=== PATIENT | male | born 1990 | race Caucasian/White ===

== ENCOUNTER 2017-06-26 22:24 | Emergency (ER) | payer OTHER ==
[~2017-06-26] VITALS: Ht 170.2 cm; Wt 100.0 kg
[2017-06-26 22:26] VITALS: BP 181/92; PULSE 95; RESP 18; TEMP 98.4; O2SAT 100
[2017-06-26] MEDS ORDERED: NAPR500T2 PO (23:21)
[2017-06-27] MEDS ORDERED: PENICILLIN V POTASSIUM 500 MG TAB PO ONE
[2017-06-27] MEDS ORDERED: TYLETAB34 PO
[2017-06-27] MEDS ORDERED: IBUP-232 PO
[2017-06-27] MEDS ORDERED: PENI500T PO
[2017-06-27] MEDS ORDERED: ACETAMINOPHEN/CODEINE 300 MG/30 MG TAB PO ONE
--- NOTE | 2017-06-27 | PD ---
HPI Chief Complaint: Facial Pain or Swelling Time Seen by Provider: 23:28 Travel History International Travel<30 days: No Contact w/Intl Traveler<30days: No Traveled to known affect area: No History of Present Illness HPI Patient is a 27 year old male who presents to ER with c/o of right sided lower jaw pain which started around 730pm tonight. Reports that he did take some naproxen prior to coming to the ER which has eased his pain. No fever/chills. No trauma to face/neck. PFSH Past Medical History Medical History: Denies Significant Hx Tetanus Vaccination: > 5 Years Influenza Vaccination: No Social History Alcohol Use: Yes (RARELY ) Tobacco Use: No Substance Use: No Allergies-Medications (Allergen,Severity, Reaction): Coded Allergies: citalopram (Verified Allergy, Severe, 06/26/17) SPACE OUT Reported Meds & Prescriptions Reported Meds & Active Scripts Active Reported Naproxen 500 Mg Tab 500 Mg PO ONCE Review of Systems General / Constitutional: No: Fever Eyes: No: Visual changes HENT: Positive: Dental Difficulties, No: Headaches Cardiovascular: No: Chest Pain or Discomfort Respiratory: No: Shortness of Breath Gastrointestinal: No: Abdominal Pain Genitourinary: No: Dysuria Musculoskeletal: No: Pain Skin: No Rash Neurologic: No: Weakness Psychiatric: No: Depression Endocrine: No: Polydipsia Hematologic/Lymphatic: No: Easy Bruising Physical Exam Narrative GENERAL: Well-nourished, well-developed patient. SKIN: Focused skin assessment warm/dry. HEAD: Normocephalic. EYES: No scleral icterus. No injection or drainage. NECK: Supple, trachea midline. No JVD or lymphadenopathy. MOUTH: Patient with no trismus, poor dentition, no obvious abscess/infection, positive right sided cervical adenopathy, no swelling of neck, uvula midline with no swelling CARDIOVASCULAR: Regular rate and rhythm without murmurs, gallops, or rubs. RESPIRATORY: Breath sounds equal bilaterally. No accessory muscle use. GASTROINTESTINAL: Abdomen soft, non-tender, nondistended. MUSCULOSKELETAL: No cyanosis, or edema. BACK: Nontender without obvious deformity. No CVA tenderness. Data Data Last Documented VS Vital Signs Date Time Temp Pulse Resp B/P (MAP) Pulse Ox O2 Delivery O2 Flow Rate FiO2 06/26/17 22:26 98.4 95 18 181/92 (121) 100 Room Air Orders Orders Penicillin V Potassium (Veetids) (06/27/17 00:00) Acetamin-Codeine 300-30 Mg (Tylenol-Code (06/27/17 00:00) MDM Medical Decision Making Medical Screen Exam Complete: Yes Emergency Medical Condition: Yes Medical Record Reviewed: Yes Interpretation(s) Vital Signs Date Time Temp Pulse Resp B/P (MAP) Pulse Ox O2 Delivery O2 Flow Rate FiO2 06/26/17 22:26 98.4 95 18 181/92 (121) 100 Room Air Differential Diagnosis dental infection/caries, tmj Narrative Course 27 year old male who presents to emergency room complaints of right lower jaw pain. Discussed with patient need to follow-up with dentist as he most likely has dental infection/dental caries. Plan to start patient on Pen-Vee K, he was given a list of dental clinics for follow-up. He will return to ER as needed Diagnosis Primary Impression: Pain in lower jaw Additional Impression: Pain, dental Patient Instructions: General Instructions, Narcotic given in the ED Additional Instructions: Please take all antibiotics as prescribed Please follow up with a dentist as soon as possible Return to ER as needed or if symptoms persist Med/Other Pt SpecificInfo: Prescription(s) given Scripts Ibuprofen (Ibuprofen) 600 Mg Tab 600 MG PO Q6H Y for Pain/Inflammation, #40 TAB 0 Refills Prov: Liat Hines DO 06/27/17 Acetaminophen-Codeine (Tylenol-Codeine #3) 300-30 mg Tab 1 TAB PO Q4H Y for PAIN, #12 TAB 0 Refills Prov: Liat Hines DO 06/27/17 Penicillin V Potassium (Penicillin V Potassium) 500 Mg Tab 500 MG PO Q6H for Infection for 10 Days, #40 TAB 0 Refills Prov: Liat Hines DO 06/27/17 Disposition: 01 DISCHARGE HOME Condition: Stable Liat Hines DO Jun 27, 2017 00:00
== END 2017-06-27 00:24 | disposition home or self-care (01) ==
LOC: NEPD 22:24
DX: R68.84 Jaw pain (principal); K08.89 Other specified disorders of teeth and supporting structures
CPT/HCPCS: 99284

== ENCOUNTER 2017-07-26 20:52 | Emergency (ER) | payer OTHER ==
[~2017-07-26] VITALS: Ht 172.7 cm; Wt 100.0 kg
[2017-07-26 20:52] VITALS: BP 142/86; PULSE 107; RESP 16; TEMP 98.5; O2SAT 97
[~2017-07-26 20:52] MED LIST: IBUP-232 PO; NAPR500T2 PO; PENI500T PO; TYLETAB34 PO
--- NOTE | 2017-07-26 21:45 | RADRPT ---
EXAM DATE/TIME: 07/26/2017 21:09 [facility] COMPARISON: No previous studies available for comparison. INDICATIONS : Right anterior knee pain, fell MEDICAL HISTORY : None. SURGICAL HISTORY : None. ENCOUNTER: Initial ACUITY: 1 day PAIN SCORE: 5/10 LOCATION: Right Knee FINDINGS: No acute fracture, dislocation or knee joint effusion. No significant arthritic changes identified. CONCLUSION: No acute fracture, dislocation or knee joint effusion. Tripp Long MD on July 26, 2017 at 21:41 Board Certified Radiologist. This report was verified electronically.
[2017-07-26] MEDS ORDERED: DICL75TA PO (21:48)
--- NOTE | 2017-07-26 21:51 | PD ---
HPI Chief Complaint: Injury Time Seen by Provider: 21:41 Travel History International Travel<30 days: No Contact w/Intl Traveler<30days: No Traveled to known affect area: No History of Present Illness HPI 27-year-old white male presents to emergency Department with complaints of right knee pain after injury at work. Patient states that he works for the [employer]. 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 He states that he struck his right knee very hard on the ground. Since then he has had pain and difficulty ambulate. He denies injury to his head, neck or back. No upper extremity injury. No numbness, tingling or weakness. Pain is moderate. Worse with walking. Some relief with elevation. PFSH Past Medical History Narrative Medical Left ACL tear Tetanus Vaccination: < 5 Years Past Surgical History Narrative Surgical Left ACL reconstruction Social History Alcohol Use: Yes (RARELY ) Tobacco Use: Yes Substance Use: No Allergies-Medications (Allergen,Severity, Reaction): Coded Allergies: citalopram (Verified Allergy, Severe, 06/26/17) SPACE OUT Reported Meds & Prescriptions Reported Meds & Active Scripts Active No Active Prescriptions or Reported Medications Review of Systems Except as stated in HPI: all other systems reviewed are Neg Musculoskeletal: Positive: Arthralgias, Limited ROM, Edema, Pain, No: Myalgias , Weakness Physical Exam Narrative GENERAL: Well-developed, well-nourished in no acute distress. Nontoxic appearing. HEAD: Normocephalic, atraumatic. EYES: Pupils equal round and reactive. Extraocular motions intact. No scleral icterus. No injection or drainage. ENT: TMs clear without erythema. The external auditory canals clear. Nose: clear . Posterior pharynx is pink and moist. No tonsillar edema or exudate. Uvula midline. Airway patent. NECK: Trachea midline.Supple, nontender, moves head freely. No central bony tenderness or spasm. CARDIOVASCULAR: Regular rate and rhythm without murmurs, gallops, or rubs. RESPIRATORY: Clear to auscultation. Breath sounds equal bilaterally. No wheezes , rales, or rhonchi. GASTROINTESTINAL: Abdomen soft, non-tender, nondistended. No hepato-splenomegaly , or palpable masses. No guarding. EXTREMITIES: No clubbing, cyanosis, or edema. Examination of the right lower extremity reveals no obvious joint effusion. He has tenderness over the patella. There is no anterior posterior draw. No medial lateral collateral ligament instability but the patient does complain of pain on medial collateral testing. No pain in the hip, ankle or foot. He has intact sensation with good distal pulses. The left lower extremity as well as upper extremities are unremarkable. BACK: Nontender without deformity or crepitance. No flank tenderness. Data Data Last Documented VS Vital Signs Date Time Temp Pulse Resp B/P (MAP) Pulse Ox O2 Delivery O2 Flow Rate FiO2 07/26/17 20:52 98.5 107 16 142/86 (104) 97 Room Air Orders Orders Knee, Complete (4vws) (07/26/17 ) Ice/Cold Pack (07/26/17 21:46) Splint Or Brace Apply/Monitor (07/26/17 21:46) Crutches (07/26/17 21:46) Naproxen (Naprosyn) (07/26/17 22:00) Ed Discharge Order (07/26/17 21:47) MDM Medical Decision Making Medical Screen Exam Complete: Yes Emergency Medical Condition: Yes Medical Record Reviewed: Yes Interpretation(s) Right knee: Negative for acute fracture. No joint effusion. Differential Diagnosis MDM: High Differential diagnoses: Fracture, sprain, strain, dislocation, contusion, neurovascular injury Narrative Course X-ray of the right knee is negative for trauma. Patient's given Naprosyn 500 mg by mouth, ice pack, Burt wrap and crutches. This is right knee contusion/sprain Diagnosis Primary Impression: right knee contusion/sprain Patient Instructions: General Instructions Departure Forms: Tests/Procedures, Work Release Special Instructions: Sedentary work for 5 days. Additional Instructions: Rest. Elevation. Ice packs for the next 3 days. Burt wrap and crutches. No weight-bearing and then progress to weight-bearing as tolerated. Medications as directed Follow-up with an orthopedist or your work comp doctor in one week. Return to the ER if any problems Med/Other Pt SpecificInfo: Prescription(s) given Scripts Diclofenac Sodium DR (Diclofenac Sodium DR) 75 Mg Tabdr 75 MG PO BID, #20 TAB 0 Refills Prov: Bret Nj MD 07/26/17 Disposition: 01 DISCHARGE HOME Condition: Stable Preet Ibanez PA Jul 26, 2017 21:51
[2017-07-26] MEDS ORDERED: NAPROXEN 500 MG TAB PO ONE (22:00)
== END 2017-07-26 22:27 | disposition home or self-care (01) ==
LOC: NEPK 20:52
DX: S83.91XA Sprain of unspecified site of right knee, initial encounter (principal); X58.XXXA Exposure to other specified factors, initial encounter; Y92.89 Other specified places as the place of occurrence of the external cause; Y99.0 Civilian activity done for income or pay; Z72.0 Tobacco use; Z88.8 Allergy status to other drugs, medicaments and biological substances
CPT/HCPCS: 73564; 99283; E0113

== ENCOUNTER 2017-10-18 12:46 | Emergency (ER) | payer OTHER ==
[~2017-10-18] VITALS: Ht 170.2 cm; Wt 100.0 kg
[~2017-10-18 12:46] MED LIST changes: +DICL75TA PO; -IBUP-232 PO; -NAPR500T2 PO; -PENI500T PO; -TYLETAB34 PO
[2017-10-18 13:11] VITALS: BP 131/83; PULSE 86; RESP 18; TEMP 98.3; O2SAT 98
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
== END 2017-10-18 15:24 | disposition home or self-care (01) ==
LOC: NEPK 12:46
DX: S06.0X0A Concussion without loss of consciousness, initial encounter (principal); Y04.2XXA Assault by strike against or bumped into by another person, initial encounter; Y92.199 Unspecified place in other specified residential institution as the place of occurrence of the external cause; Y99.0 Civilian activity done for income or pay; Z72.0 Tobacco use; Z88.8 Allergy status to other drugs, medicaments and biological substances
CPT/HCPCS: 70450; 72125